=== PATIENT | female | born 1950 | race Asian ===

== ENCOUNTER 2024-10-23 01:53 | Observation (INO) ==
[2024-10-23 02:44] LABS: Hematocrit (blood only) 38.0 % (37.0-47.0); Hemoglobin 12.2 g/dl (12.0-16.0); Mean Corpuscular Hemoglobin 31.0 pg (25.0-34.0); Mean Corpuscular Volume 96.7 fL (80.0-100.0); Platelet Count 295 K/uL (130-400); RDW Standard Deviation 46.7 fL (36.4-46.3); Red Blood Count 3.93 M/uL (4.20-5.40); White Blood Count 6.88 K/ul (4.8-10.8)
--- NOTE | 2024-10-23 02:48 | Emergency Department Note ---
Impression & Plan Left upper extremity numbness, Left chest pressure ED Provider Note CHIEF COMPLAINT: Numbness HISTORY OF PRESENTING ILLNESS: This 74-year-old female patient presents to the emergency department via ambulance for evaluation of numbness to her left arm and hand. The patient states that she ate later than usual tonight around 9 pm. She states that she had spicy Syriac food. She states that she feels numb on the left side of her body mostly in her left arm and hand as well as the left side of her chest near the left arm. She feels cold and like her body is shaking. However, she denies any fever or URI symptoms. She denies any weakness of her arms or legs. She is still able to walk and talk normally. She denies any facial droop. She denies any numbness other than the left arm and hand. She is not on any blood thinners and does not take Aspirin. The symptoms started at 10 pm and the symptoms are starting to improve. She denies chest pain or SOB. She denies abdominal pain, nausea, or vomiting. She denies any urinary symptoms or problems with her BMs. Denies any previous similar symptoms. No history of stroke. She denies tobacco use or vaping. Occasional alcohol use and she states that she did have some wine with dinner. REVIEW OF SYSTEMS: See HPI for pertinent positives and pertinent negatives. ALLERGIES: NKDA MEDICATIONS: Oxybutynin XL 10 mg, Amlodipine 5 mg, Losartan 100 mg PAST MEDICAL HISTORY: HTN, Prediabetes PHYSICAL EXAM: VITALS: Vitals are noted on the nurse's note and reviewed by myself. GENERAL: No acute distress, non-diaphoretic. SKIN: No rashes or abnormal skin lesions in the areas of concern. Capillary reflex less than 2 seconds. HEAD: No scalp tenderness. No step-offs felt. EARS: Bilateral external auditory canals clear. Bilateral tympanic membranes pearly allen without erythema or effusion. No hemotympanum. No dailey sign. No mastoid tenderness. EYES: Pupils equal round and reactive to light and accommodation. Conjunctivae without injection, sclerae without icterus. Extraocular movements intact without pain. No nystagmus. NOSE: Patent, turbinates without inflammation or discharge. No sinus tenderness. No septal hematoma or bleeding. FACE: No facial bone tenderness. Full range of motion of the jaw without tenderness. No facial droop. MOUTH: Mucous membranes moist. Uvula midline. Airway patent. Tongue does not deviate. NECK: Supple without nuchal rigidity. Cervical spine is nontender. Full range of motion of the neck without tenderness and normal strength. HEART: Regular rate and rhythm without murmurs gallops or rubs. LUNGS: Clear to auscultation bilaterally without wheezes, rales or rhonchi. No retractions or accessory muscle use. No chest wall tenderness. ABDOMEN: Positive bowel sounds x 4. Normal tympanic percussion. Soft, nontender to palpation. No masses or hepatosplenomegaly. No guarding or rebound tenderness. No focal RLQ or LLQ tenderness. MUSCULOSKELETAL: No tenderness of the thoracic or lumbar spine or paraspinal muscles. Full range of motion of the bilateral upper and lower extremities. Strength 5/5 and equal bilaterally in the upper and lower extremities. Peripheral pulses 2+ and equal in the bilateral upper and lower extremities. NEURO: Patient was alert and oriented to person place and time. Normal mental status exam. Normal sensation to light and sharp touch of the bilateral upper and lower extremities. Negative Romberg and pronator drift. Normal qvrkwx-oz-ecof touch. Normal jjib-tl-myod touch. Cerebellar function intact. No focal neurological deficits. DIFFERENTIAL DIAGNOSIS: Differential diagnosis includes paresthesias, CVA, TIA, dehydration, hypovolemia, anemia, tumor, infection, hypoglycemia, electrolyte abnormalities, cardiac sources, intracerebral event, toxicologic, neurologic, as well as other pathologies. ED COURSE AND MEDICAL DECISION MAKING: MEDICATIONS GIVEN: 500 mL normal saline solution bolus. Pepcid 20 mg IV. Aspirin 324 mg p.o. MONITOR: Continuous court monitor: Order was placed for continuous court monitor. Patient was placed on the court monitor and continuous pulse ox. Patient was noted to be in sinus tachycardia at an initial rate of 104 bpm per my interpretation. EKG: EKG was interpreted by myself as normal sinus rhythm at 98 bpm with somewhat poor quality of the EKG, but no obvious acute abnormalities. INTERPRETATION OF LABS: I interpreted the labs with full lab results as below in the lab section of this note. Laboratory results pertinent to the emergent complaint are discussed in the MDM section below. The patient was advised to follow up with their PCP and/or specialist(s) for further outpatient monitoring and management of any abnormal results. INTERPRETATION OF IMAGING: Imaging studies were interpreted by myself and read by radiology as per the imaging section of this note. The patient was advised to follow up with their PCP and/or specialist(s) for further outpatient management of any non-emergent abnormal findings. CT scan of the head without contrast showed no acute intracranial abnormality. There is chronic microvascular ischemic changes. Cerebral atrophy. No obvious large territorial ischemic/hemorrhagic stroke. CTA of the head and neck with IV contrast shows no critical stenosis, but there are mild atherosclerotic changes in the intracranial portions of the bilateral internal carotid arteries as well as small atherosclerotic calcific plaques in the left common carotid artery, bilateral carotid bulbs, and ostial proximal segments of the internal and external carotid arteries without significant luminal narrowing. CTA of the chest with IV contrast showed no evidence for PE. There is mild dilation of the pulmonary trunk, bilateral main pulmonary artery up to subsegmental level with mild tortuosity. Suggest possibility of pulmonary arterial hypertension. Diffuse ground glass haze and subpleural atelectasis involving the dependent portion of both lower lobes which is likely positional. CONSULTATIONS: On-call hospitalist MDM SUMMARY: The patient was seen during a time of extreme volume and extreme acuity. Nursing triage protocols were initiated with IV lock, labs, and/or imaging studies conducted by protocol in the triage area. The patient was examined by myself once they were taken back to an exam room. The patient ate dinner later than usual this evening at 9 PM. She states that she cooked spicy Syriac food and had some wine with dinner. Around 10 PM she developed numbness and tingling into the left arm and hand as well as a numbness and tingling feeling to the left side of her chest near the left arm. No other focal neurologic symptoms and no focal neurologic deficits on exam. The patient has normal sensation to light and sharp touch of the left upper extremity at the time of my exam. She states that the symptoms have almost resolved at the time of initial exam. NIH stroke score of 0 with normal dysphagia screen. The patient was given 500 mL normal saline solution bolus. She was given Pepcid 20 mg IV. White blood cell count normal at 6.88. Hemoglobin normal at 12.2. Platelet count normal at 295. Coags were normal. Glucose 133, but CMP without concerning abnormalities. Magnesium normal. High-sensitivity troponin normal. TSH elevated at 6.653 with normal free T4 of 1.13. Medical alcohol level 57.7. CT scan of the head without contrast showed no acute intracranial abnormality. There is chronic microvascular ischemic changes. Cerebral atrophy. No obvious large territorial ischemic/hemorrhagic stroke. CTA of the head and neck with IV contrast shows no critical stenosis, but there are mild atherosclerotic changes in the intracranial portions of the bilateral internal carotid arteries as well as small atherosclerotic calcific plaques in the left common carotid artery, bilateral carotid bulbs, and ostial proximal segments of the internal and external carotid arteries without significant luminal narrowing. CTA of the chest with IV contrast showed no evidence for PE. There is mild dilation of the pulmonary trunk, bilateral main pulmonary artery up to subsegmental level with mild tortuosity. Suggest possibility of pulmonary arterial hypertension. Diffuse ground glass haze and subpleural atelectasis involving the dependent portion of both lower lobes which is likely positional. By the time the patient's workup was complete, the patient stated that her symptoms resolved. I had a meaningful discussion about this patient with Dr. Santiago who agrees with my assessment and the treatment plan. There is concern for possible TIA as a cause of her symptoms. We feel the patient requires admission for further inpatient evaluation and treatment of her symptoms. I spoke with the on-call hospitalist who agreed to admit the patient for further management. Please refer to their dictation for further details. She was given aspirin 324 mg p.o. chewed. The patient's care was transferred in stable condition. DIAGNOSIS: Numbness and tingling in the left upper extremity - ? possible TIA Chest pain Past Med/Surg History Problem List (Updated 10/23/24 @ 20:58 by Mile Cummings PA-C) Left upper extremity numbness (Acute) Left chest pressure (Acute) Stroke-like symptoms Medical History (Updated 10/23/24 @ 20:58 by Mile Cummings PA-C) Hyperlipidemia Hypertension Social History Smoking Status: Never smoker Hx Alcohol Use: Yes Alcohol type: beer Hx Substance Use: No Preferred Language: [place] She[place] Operator Required: No Beliefs That Will Affect Care: None Current Living Situation: Spouse Other Information That Helps Us Care for You: No Feels Safe at Home: Yes Safety Concerns: Feels Safe At This Time Allergies Allergies Allergy/AdvReac Type Severity Reaction Status Date / Time No Known Allergies Allergy Verified 10/23/24 02:46 Home Meds Home Medications Medication Instructions Recorded Confirmed amlodipine 5 mg tablet 5 mg PO DAILY 10/23/24 10/23/24 losartan 100 mg tablet 100 mg PO DAILY 10/23/24 10/23/24 rosuvastatin 10 mg tablet 10 mg PO HS 10/23/24 10/23/24 Previous Rx's Medication Instructions Recorded aspirin 81 mg tablet,delayed 81 mg PO QAM #30 tabs 10/23/24 release Results & Data (ED) Vital Signs Vital Signs - 24 hr 10/23/24 02:04 10/23/24 02:26 10/23/24 02:31 Temperature 36.6 C Temperature Source Temporal Artery Scan Pulse Rate 93 H 83 Pulse Rate [Apical] Pulse Rhythm Regular Pulse Rhythm [Apical] Pulse Strength Normal Pulse Strength [Apical] Respiratory Rate 18 Respiratory Effort / Characteristics Non-Labored Spontaneous Respiratory Depth Normal Respiratory Pattern Regular Blood Pressure 154/86 H Blood Pressure [Right Arm] Blood Pressure Mean 108 Blood Pressure Mean [Right Arm] Blood Pressure Position Sitting Blood Pressure Position [Right Arm] Pulse Oximetry 99 98 Oxygen Delivery Method Room Air Room Air Sepsis Recent Fever Within 48 Hours No Sepsis New/Unexplained Change in Mental Status N/A Sepsis Action Taken by Nursing No Action Required 10/23/24 04:00 10/23/24 06:00 10/23/24 06:15 Temperature Temperature Source Pulse Rate 114 H Pulse Rate [Apical] 91 H 87 Pulse Rhythm Pulse Rhythm [Apical] Regular Regular Pulse Strength Pulse Strength [Apical] Normal Normal Respiratory Rate 18 20 Respiratory Effort / Characteristics Non-Labored Spontaneous Non-Labored Spontaneous Respiratory Depth Normal Normal Respiratory Pattern Regular Regular Blood Pressure Blood Pressure [Right Arm] 120/94 179/96 H Blood Pressure Mean Blood Pressure Mean [Right Arm] 102 123 Blood Pressure Position Blood Pressure Position [Right Arm] Lying Sitting Pulse Oximetry 97 100 Oxygen Delivery Method Room Air Room Air Sepsis Recent Fever Within 48 Hours Sepsis New/Unexplained Change in Mental Status Sepsis Action Taken by Nursing Laboratory Data 10/23/24 02:15 10/23/24 02:15 Lab Results 10/23/24 10/23/24 Range/Units 02:15 04:18 WBC 6.88 (4.8-10.8) K/ul RBC 3.93 L (4.20-5.40) M/uL Hgb 12.2 (12.0-16.0) g/dl Hct 38.0 (37.0-47.0) % MCV 96.7 (80.0-100.0) fL MCH 31.0 (25.0-34.0) pg MCHC 32.1 (32.0-36.0) g/dL RDW Std Deviation 46.7 H (36.4-46.3) fL RDW Coeff of Juan Daniel 13.1 (11.5-14.5) % Plt Count 295 (130-400) K/uL MPV 9.1 L (9.4-12.4) fL PT 9.5 (9.0-12.0) Seconds INR 0.9 (0.9-1.1) APTT 27 (21-31) Seconds PTT Ratio 1.0 Sodium 137 (136-145) mmol/L Potassium 3.5 (3.5-5.1) mmol/L Chloride 101 (98-107) mmol/L Carbon Dioxide 27 (21-32) mmol/L Anion Gap 9 (3-11) BUN 19 (6-23) mg/dl Creatinine 0.94 (0.6-1.2) mg/dl Est Cr Clr Drug Dosing 34.9 ml/min eGFR 64.47 BUN/Creatinine Ratio 20.2 H (10-20) Glucose 133 H (70-99(Fasting)) mg/dl Calcium 9.1 (8.6-10.3) mg/dl Magnesium 2.2 (1.7-2.4) mg/dl Total Bilirubin 0.4 (0.2-1.0) mg/dl AST 23 (13-39) U/L ALT 14 (7-52) U/L Alkaline Phosphatase 60 (34-104) U/L Troponin I High Sens 5.5 (0-14) pg/ml Total Protein 8.6 H (6.0-8.3) gm/dl Albumin 4.6 (3.4-5.0) gm/dl Globulin 4.0 (2.5-4.0) gm/dl Albumin/Globulin Ratio 1.1 (0.9-2) TSH 6.653 H (0.300-4.500) uIu/ml Free T4 1.13 (0.61-1.60) ng/dl Ethyl Alcohol mg/dL 57.7 H (<10.0) mg/dl Administered Medications Discontinued Medications Amlodipine Besylate (Amlodipine Besylate 5 Mg Tab) 5 mg PO DAILY CYNTHIA Stop: 11/22/24 15:59 Last Admin: 10/23/24 16:32 Dose: 5 mg Documented By: TRES Aspirin (Aspirin Chew 324 Mg) 324 mg PO NOW STA Stop: 10/23/24 05:56 Last Admin: 10/23/24 06:04 Dose: 324 mg Documented By: JYOTI Sodium Chloride (Nss) 500 mls @ 999 mls/hr IV .Q31M ONE Stop: 10/23/24 03:30 Last Infusion: 10/23/24 03:50 Dose: Infused Documented By: Admin: 10/23/24 03:10 Dose: 999 mls/hr Documented By: DAYAN Famotidine (Pepcid 20mg Iv Push) 20 mg in 5 mls @ 2.5 mls/min IV NOW STA Stop: 10/23/24 03:01 Last Admin: 10/23/24 03:10 Dose: 2.5 mls/min Documented By: DAYAN Ioversol (Optiray 320 125ml) 125 ml IV ONCE ONE Stop: 10/23/24 03:38 Last Admin: 10/23/24 03:37 Dose: 118 ml Documented By: DUNIA Losartan Potassium (Losartan Potassium 50 Mg Tab) 100 mg PO DAILY CYNTHIA Stop: 11/22/24 15:59 Last Admin: 10/23/24 16:32 Dose: 100 mg Documented By: TRES Discharge Plan Visit Data Chief Complaint: Neuro Symptoms/Deficit Stated Complaint: FLU ED Provider: Coni Santiago ED Midlevel Provider: Mile Cummings Discharge Problem: Left upper extremity numbness, Left chest pressure Patient Disposition: Admitted As Inpatient Condition: Fair Discharge Instructions Interventions: ED Discharge Assessment Last Done: 10/23/24 09:55
[2024-10-23 02:52] LABS: Alanine Aminotransferase 14.0 U/L (7-52); Albumin Globulin Ratio 1.1 (0.9-2); Alkaline Phosphatase 60.0 U/L (34-104); Anion Gap 9.0 (3-11); Bilirubin,Total 0.4 mg/dl (0.2-1.0); Blood Urea Nitrogen 19.0 mg/dl (6-23); Calcium 9.1 mg/dl (8.6-10.3); Carbon Dioxide 27.0 mmol/L (21-32); Chloride 101.0 mmol/L (98-107); Creatinine Clr Calc Pharmacy 34.9 ml/min; Globulin 4.0 gm/dl (2.5-4.0); Glucose 133.0 mg/dl (70-99(Fasting)); Magnesium 2.2 mg/dl (1.7-2.4); Potassium 3.5 mmol/L (3.5-5.1); Sodium 137.0 mmol/L (136-145); Total Protein 8.6 gm/dl (6.0-8.3)
[2024-10-23] MEDS: FAMOTIDINE 20MG IV PUSH 20 MG/5 ML SYR IV STA (03:10)
[2024-10-23] MEDS: SODIUM CHLORIDE 0.9% 500 ML IV ONE (03:10)
[2024-10-23 03:11] LABS: INR 0.9 (0.9-1.1); Partial Thromboplastin Time 27 Seconds (21-31); Prothrombin Time 9.5 Seconds (9.0-12.0)
[2024-10-23] MEDS: OPTIRAY 320 125ml IV ONE (03:37)
[2024-10-23 03:38] LABS: Thyroid Stimulating Hormone 6.653 uIu/ml (0.300-4.500)
--- NOTE | 2024-10-23 04:15 | CT Scan Report ---
EXAM: CT head/brain wo con CLINICAL HISTORY: Numbness left arm TECHNIQUE: Multiple axial images are obtained from the skull base to the vertex without contrast. CT scan was performed according to ALARA (as low as reasonably achievable). COMPARISON: None. FINDINGS: There is cerebral atrophy. No evidence of space occupying lesion, hemorrhage, edema, mass effect, midline shift, extra axial collection, or hydrocephalus is noted. Basal cisterns are symmetric and normal in size and configuration. There are scattered confluent periventricular hypodensities as can be seen with chronic microvascular ischemic changes. The allen-white matter differentiation is preserved. Visualized paranasal sinuses and mastoid air cells are well aerated. Orbital contents are within normal limits. Bony structures are intact. IMPRESSION: 1. No evidence of acute intracranial abnormality is demonstrated. 2. Chronic microvascular ischemic changes. 3. Cerebral atrophy. 4. CT scan is negative for large territorial ischemic / hemorrhagic stroke. 5. Non contrast CT can be negative in the setting of hyperacute infarct/small ischemic infarct and further evaluation with diffusion weighted MRI is recommended as clinically appropriate. Electronically signed by Pierre Hilton 10-23-2024 04:14 AM
--- NOTE | 2024-10-23 05:02 | CT Scan Report ---
EXAM: CT angio chest PE protocol CLINICAL HISTORY: chest pain, left arm numb, eval PE TECHNIQUE: Contiguous axial images were obtained from the neck base through the upper abdomen following intravenous administration of iodinated contrast material. Angiographic images were processed, 3D MIP images were acquired for interpretation. If IV contrast material had not been administered, the likelihood of detecting abnormalities relevant to the patient's condition would have been substantially decreased. Coronal and sagittal 3-D MIPs were likewise performed and indicated to increase the sensitivity of detectin diffuse clinically relevant pathology. CT scan was performed according to ALARA (as low as reasonably achievable). COMPARISON: None. FINDINGS: Mild dilatation of pulmonary trunk ,bilateral main pulmonary artery up to subsegmental level with mild tortuosity - suggest possibility of pulmonary arterial hypertension. Diffuse ground-glass hase with subpleural atelectasis are noted involving dependent portion of both lower lobes - suggest possibility of due to insufficient inspiration. Adequate contrast bolus without evidence of pulmonary embolism. The central airways are patent. The heart, aorta, are of normal size and configuration. There are coronary artery and aortic atherosclerotic calcifications. No pericardial effusion is identified. The thyroid is unremarkable. No mediastinal, hilar, or axillary lymphadenopathy is noted. No suspicious lytic or sclerotic osseous lesions are identified. IMPRESSION: No evidence of pulmonary embolism. Mild dilatation of pulmonary trunk ,bilateral main pulmonary artery up to subsegmental level with mild tortuosity - suggest possibility of pulmonary arterial hypertension. Diffuse ground-glass hase with subpleural atelectasis are noted involving dependent portion of both lower lobes - likely positional. Electronically signed by Pierre Hilton 10-23-2024 05:02 AM
--- NOTE | 2024-10-23 05:09 | CT Scan Report ---
EXAM: CT angio head w con CLINICAL HISTORY: Numbness left arm TECHNIQUE: An axial CT angiography of the head was done with IV contrast (100 ml Isovue 370) and sagittal and coronal reformats with MIP reconstructions. One of the following dose reduction techniques was utilized for this exam: Automated exposure control, adjustment of the mA and/or kV according to patient size, and use of iterative reconstruction. One of these 3D techniques was utilized: Maximum Intensity Pixel (MIP), 3D Reconstructed Images, Volume Rendered Images, Surface Shaded Rendering. (CTDI: 38.03 mGy, DLP: 1046.80 mGy*cm) COMPARISON: CT head, same day reviewed FINDINGS: Intracranial Arteries: The intracranial portions of the bilateral internal carotid arteries show calcified plaques with up to 10% luminal narrowing. Bilateral anterior and middle cerebral arteries appear normal in caliber and contrast opacification. Prominent posterior communicating arteries on both sides with origin of posterior cerebral arteries. Hypoplastic P2 segment of the left posterior cerebral artery, normal variant. The basilar artery and the rest of the bilateral posterior cerebral arteries appear normal in caliber and contrast opacification. The visualized vertebral arteries appear normal in caliber and contrast opacification. IMPRESSION: 1. No critical stenosis in CT angiography of the head. 2. Mild atherosclerotic changes in the intracranial portions of the bilateral internal carotid arteries. Electronically signed by Avila Rm 10-23-2024 05:08 AM
--- NOTE | 2024-10-23 05:23 | CT Scan Report ---
EXAM: CT angio neck with con CLINICAL HISTORY: Numbness left arm TECHNIQUE: An axial CT angiography of the neck was done with IV contrast (118 ML OPTIRAY 320) and sagittal and coronal reformats with MIP reconstructions. One of these 3D techniques was utilized: Maximum Intensity Pixel (MIP), 3D Reconstructed Images, Volume Rendered Images, Surface Shaded Rendering. One of the following dose reduction techniques were utilized for this exam: Automated exposure control, adjustment of the mA and/or kV according to patient size, use of iterative reconstruction. (CTDI: 38.03 mGy, DLP: 1046.80 mGy*cm) COMPARISON: None. FINDINGS: The aortic arch shows atherosclerotic changes with calcified plaques. Normal branching pattern noted. Carotid Arteries: Tiny calcific plaques in left common carotid artery with mild intimal thickening without significant luminal narrowing, otherwise bilateral common carotid arteries appear normal in caliber and contrast opacification. Tiny calcified plaques are seen at bilateral carotid bulbs and osteoproximal segments of internal and external carotid arteries, without significant luminal narrowing. The cervical portions of bilateral internal carotid arteries appear normal in caliber and contrast opacification. Bilateral external carotid arteries appear normal in caliber and contrast opacification. Vertebral Arteries: Calcific plaque at the origin of, rest of vertebral arteries bilaterally are well-opacified. Subclavian Arteries: Calcified plaques in proximal portions of both subclavian arteries with up to 10%-20% luminal narrowing. Thyroid Gland: Normal size and morphology of the thyroid gland. Visualised chest: Mild bilateral apical lung fibrosis Cervical Spine: Degenerative changes in the cervical spine. IMPRESSION: No critical stenosis in CT angiography of the neck Small atherosclerotic calcific plaques in the left common carotid artery, bilateral carotid bulbs, and osteoproximal segments of internal and external carotid arteries, without significant luminal narrowing. Electronically signed by Avila Rm 10-23-2024 05:22 AM
--- NOTE | 2024-10-23 05:29 | Emergency Department Note ---
ED Visit Note I was consulted by the Advanced Practice Provider. I personally made/approved the management plan and take responsibility for the patient management. I performed a substantive portion of the visit. This includes the aspects of: Personally seeing the patient -MDM I reviewed the results of her CT scans And laboratory studies. .
[2024-10-23] MEDS: ASPIRIN CHEW 324 MG PO STA (06:04)
--- NOTE | 2024-10-23 06:30 | History & Physical Report ---
Date of Service October 23, 2024 Assessment & Plan (1) Stroke-like symptoms: (2) Left chest pressure: (3) Left upper extremity numbness: (4) Hypertension: Plan The patient is a 74-year-old male with past medical history including hypertension and hyperlipidemia. The patient presents to the emergency department with complaint of development of numbness on the left side of her face, left chest and left arm that began around 10 PM, after eating a late meal around 9:00 PM. She denies any involvement of her left leg. She is not on any blood thinners, and does not take aspirin. She does take her antihypertensives and cholesterol medications as directed. Workup in the emergency department included a CT scan of head which showed chronic small vessel disease with no acute problems. Normal CTA of head. CTA of neck which showed nonobstructive small plaques in the carotids. CTA chest PE protocol was negative for PE ED was asked to give the patient aspirin 324 mg. Strokelike symptoms/left chest pressure and numbness/left upper extremity numbness- The patient will be admitted to telemetry for serial cardiac enzymes, serial EKG's, cardiac rhythm monitoring and a 2-D echocardiogram with Dopplers. Initial troponin 5.5, with serial follow-ups pending Permissive hypertension, holding losartan and amlodipine Patient received from the ED normal saline 500 mL bolus, and famotidine 20 mg IV Stroke without thrombolytic order set CT head without contrast shows chronic small vessel disease CTA head is negative CTA neck shows small atherosclerotic calcific plaques in the left common carotid artery, bilateral carotid bulbs, and ostial proximal segments of internal and ex ternal carotid arteries, without significant luminal narrowing. Given aspirin 324 mg in ED, and will continue milligrams every morning Ordered MRI brain without contrast Consult PT/OT Check hemoglobin A1c and fasting panel Hyperlipidemia Continue rosuvastatin Check a fasting lipid panel as noted Hypertension- In the acute setting hold amlodipine and losartan, permissive hypertension Mild hyperglycemia- Glucose 133 on admission Check hemoglobin A1c Social alcohol intake- Alcohol is 57.7, no further testing needed History of Present Illness Chief Complaint: The patient presents to the emergency department with complaint of development of numbness on the left side of her face, left chest and left arm that began around 10 PM, after eating a late meal around 9:00 PM. She denies any involvement of her left leg. She is not on any blood thinners, and does not take aspirin. She does take her antihypertensives and cholesterol medications as directed. Primary Care Provider: Tom Trivedi MD The patient is a 74-year-old male with past medical history including hypertension and hyperlipidemia. The patient presents to the emergency department with complaint of development of numbness on the left side of her face, left chest and left arm that began around 10 PM, after eating a late meal around 9:00 PM. She denies any involvement of her left leg. She is not on any blood thinners, and does not take aspirin. She does take her antihypertensives and cholesterol medications as directed. Workup in the emergency department included a CT scan of head which showed chronic small vessel disease with no acute problems. Normal CTA of head. CTA of neck which showed nonobstructive small plaques in the carotids. CTA chest PE protocol was negative for PE ED was asked to give the patient aspirin 324 mg. Allergies Allergy/AdvReac Type Severity Reaction Status Date / Time No Known Allergies Allergy Verified 10/23/24 02:46 Home Medications Medication Instructions Recorded Confirmed Type amlodipine 5 mg tablet 5 mg PO DAILY 10/23/24 10/23/24 History losartan 100 mg tablet 100 mg PO DAILY 10/23/24 10/23/24 History rosuvastatin 10 mg tablet 10 mg PO HS 10/23/24 10/23/24 History Past Med/Surg History Problem List (Updated 10/23/24 @ 06:24 by Trever Rahman MD) Left upper extremity numbness Left chest pressure Stroke-like symptoms Medical History (Updated 10/23/24 @ 06:24 by Trever Rahman MD) Hyperlipidemia Hypertension Social History Smoking Status: Never smoker Preferred Language: Portuguese Feels Safe at Home: Yes Review of Systems Review of Systems: The patient denies chest pain, palpitations, shortness of breath, dyspnea on exertion, cough, lower extremity swelling, sore throat, fevers, chills, sweats, weight change, fatigue, nausea, vomiting, diarrhea , constipation, abdominal pain, pelvic pain, blood in urine or stool, dysuria, urinary frequency or urgency, lightheadedness, dizziness, headache, memory loss, loss of consciousness, rash, abnormal bruising or bleeding, imbalance, focal or generalized weakness, numbness or tingling in right arm or bilateral legs, generalized arthralgias or myalgias, back or neck pain, or night sweats. The review of systems is otherwise negative other than for that already noted above, and at least 10 systems have been reviewed. Physical Exam Physical Exam: The patient is awake, alert and oriented 3, well developed and well nourished, normocephalic and atraumatic, lying in bed and in no acute distress. HEENT--PERRL, EOMI, mucous membranes and oropharynx normal Neck--supple. No JVD. No bruits. Thyroid normal, trachea midline, no adenopathy. Heart--normal S1 and S2. No murmurs, rubs or gallops. Lungs--clear bilaterally, no respiratory distress, no accessory muscle use. Abdomen--normal bowel sounds and soft. Nontender. Nondistended, no hernias or masses, no organomegaly. Extremities--no cyanosis or clubbing. No edema. There are good distal pulses b/l. Dermatologic--normal skin turgor, normal color, no abnormal lymph nodes, no rash. Neurologic--cranial nerves II through XII grossly intact. Rheumatologic--normal range of motion. Psychiatric--normal affect. Results & Data Results & Data Vital Signs (Past 12 Hours) Vital Signs Temp Pulse Pulse Resp BP BP Pulse Ox 10/23/24 06:15 114 H 10/23/24 04:00 91 H 18 120/94 97 10/23/24 02:31 83 10/23/24 02:26 98 10/23/24 02:04 36.6 C 93 H 18 154/86 H 99 O2 Del Method 10/23/24 06:15 10/23/24 04:00 Room Air 10/23/24 02:31 10/23/24 02:26 Room Air 10/23/24 02:04 Room Air Laboratory Results Laboratory Results WBC 6.88 K/ul (4.8-10.8) 10/23/24 02:15 RBC 3.93 M/uL (4.20-5.40) L 10/23/24 02:15 Hgb 12.2 g/dl (12.0-16.0) 10/23/24 02:15 Hct 38.0 % (37.0-47.0) 10/23/24 02:15 MCV 96.7 fL (80.0-100.0) 10/23/24 02:15 MCH 31.0 pg (25.0-34.0) 10/23/24 02:15 MCHC 32.1 g/dL (32.0-36.0) 10/23/24 02:15 RDW Std Deviation 46.7 fL (36.4-46.3) H 10/23/24 02:15 RDW Coeff of Juan Daniel 13.1 % (11.5-14.5) 10/23/24 02:15 Plt Count 295 K/uL (130-400) 10/23/24 02:15 MPV 9.1 fL (9.4-12.4) L 10/23/24 02:15 PT 9.5 Seconds (9.0-12.0) 10/23/24 02:15 INR 0.9 (0.9-1.1) 10/23/24 02:15 APTT 27 Seconds (21-31) 10/23/24 02:15 PTT Ratio 1.0 10/23/24 02:15 Sodium 137 mmol/L (136-145) 10/23/24 02:15 Potassium 3.5 mmol/L (3.5-5.1) 10/23/24 02:15 Chloride 101 mmol/L (98-107) 10/23/24 02:15 Carbon Dioxide 27 mmol/L (21-32) 10/23/24 02:15 Anion Gap 9 (3-11) 10/23/24 02:15 BUN 19 mg/dl (6-23) 10/23/24 02:15 Creatinine 0.94 mg/dl (0.6-1.2) 10/23/24 02:15 Est Cr Clr Drug Dosing 34.9 ml/min 10/23/24 02:15 eGFR 64.47 10/23/24 02:15 BUN/Creatinine Ratio 20.2 (10-20) H 10/23/24 02:15 Glucose 133 mg/dl (70-99(Fasting)) H 10/23/24 02:15 Calcium 9.1 mg/dl (8.6-10.3) 10/23/24 02:15 Magnesium 2.2 mg/dl (1.7-2.4) 10/23/24 02:15 Total Bilirubin 0.4 mg/dl (0.2-1.0) 10/23/24 02:15 AST 23 U/L (13-39) 10/23/24 02:15 ALT 14 U/L (7-52) 10/23/24 02:15 Alkaline Phosphatase 60 U/L (34-104) 10/23/24 02:15 Troponin I High Sens 5.5 pg/ml (0-14) 10/23/24 02:15 Total Protein 8.6 gm/dl (6.0-8.3) H 10/23/24 02:15 Albumin 4.6 gm/dl (3.4-5.0) 10/23/24 02:15 Globulin 4.0 gm/dl (2.5-4.0) 10/23/24 02:15 Albumin/Globulin Ratio 1.1 (0.9-2) 10/23/24 02:15 TSH 6.653 uIu/ml (0.300-4.500) H 10/23/24 02:15 Free T4 1.13 ng/dl (0.61-1.60) 10/23/24 02:15 Ethyl Alcohol mg/dL 57.7 mg/dl (<10.0) H 10/23/24 04:18 Impressions Chest CTA 10/23/24 03:00 EXAM: CT angio chest PE protocol CLINICAL HISTORY: chest pain, left arm numb, eval PE TECHNIQUE: Contiguous axial images were obtained from the neck base through the upper abdomen following intravenous administration of iodinated contrast material. Angiographic images were processed, 3D MIP images were acquired for interpretation. If IV contrast material had not been administered, the likelihood of detecting abnormalities relevant to the patient's condition would have been substantially decreased. Coronal and sagittal 3-D MIPs were likewise performed and indicated to increase the sensitivity of detectin diffuse clinically relevant pathology. CT scan was performed according to ALARA (as low as reasonably achievable). COMPARISON: None. FINDINGS: Mild dilatation of pulmonary trunk ,bilateral main pulmonary artery up to subsegmental level with mild tortuosity - suggest possibility of pulmonary arterial hypertension. Diffuse ground-glass hase with subpleural atelectasis are noted involving dependent portion of both lower lobes - suggest possibility of due to insufficient inspiration. Adequate contrast bolus without evidence of pulmonary embolism. The central airways are patent. The heart, aorta, are of normal size and configuration. There are coronary artery and aortic atherosclerotic calcifications. No pericardial effusion is identified. The thyroid is unremarkable. No mediastinal, hilar, or axillary lymphadenopathy is noted. No suspicious lytic or sclerotic osseous lesions are identified. IMPRESSION: No evidence of pulmonary embolism. Mild dilatation of pulmonary trunk ,bilateral main pulmonary artery up to subsegmental level with mild tortuosity - suggest possibility of pulmonary arterial hypertension. Diffuse ground-glass hase with subpleural atelectasis are noted involving dependent portion of both lower lobes - likely positional. Electronically signed by Pierre Hilton 10-23-2024 05:[address] 10/23/24 03:00 EXAM: CT head/brain wo con CLINICAL HISTORY: Numbness left arm TECHNIQUE: Multiple axial images are obtained from the skull base to the vertex without contrast. CT scan was performed according to ALARA (as low as reasonably achievable). COMPARISON: None. FINDINGS: There is cerebral atrophy. No evidence of space occupying lesion, hemorrhage, edema, mass effect, midline shift, extra axial collection, or hydrocephalus is noted. Basal cisterns are symmetric and normal in size and configuration. There are scattered confluent periventricular hypodensities as can be seen with chronic microvascular ischemic changes. The allen-white matter differentiation is preserved. Visualized paranasal sinuses and mastoid air cells are well aerated. Orbital contents are within normal limits. Bony structures are intact. IMPRESSION: 1. No evidence of acute intracranial abnormality is demonstrated. 2. Chronic microvascular ischemic changes. 3. Cerebral atrophy. 4. CT scan is negative for large territorial ischemic / hemorrhagic stroke. 5. Non contrast CT can be negative in the setting of hyperacute infarct/small ischemic infarct and further evaluation with diffusion weighted MRI is recommended as clinically appropriate. Electronically signed by Pierre Hilton 10-23-2024 04:14 AM Head CTA 10/23/24 03:00 EXAM: CT angio head w con CLINICAL HISTORY: Numbness left arm TECHNIQUE: An axial CT angiography of the head was done with IV contrast (100 ml Isovue 370) and sagittal and coronal reformats with MIP reconstructions. One of the following dose reduction techniques was utilized for this exam: Automated exposure control, adjustment of the mA and/or kV according to patient size, and use of iterative reconstruction. One of these 3D techniques was utilized: Maximum Intensity Pixel (MIP), 3D Reconstructed Images, Volume Rendered Images, Surface Shaded Rendering. (CTDI: 38.03 mGy, DLP: 1046.80 mGy*cm) COMPARISON: CT head, same day reviewed FINDINGS: Intracranial Arteries: The intracranial portions of the bilateral internal carotid arteries show calcified plaques with up to 10% luminal narrowing. Bilateral anterior and middle cerebral arteries appear normal in caliber and contrast opacification. Prominent posterior communicating arteries on both sides with origin of posterior cerebral arteries. Hypoplastic P2 segment of the left posterior cerebral artery, normal variant. The basilar artery and the rest of the bilateral posterior cerebral arteries appear normal in caliber and contrast opacification. The visualized vertebral arteries appear normal in caliber and contrast opacification. IMPRESSION: 1. No critical stenosis in CT angiography of the head. 2. Mild atherosclerotic changes in the intracranial portions of the bilateral internal carotid arteries. Electronically signed by Avila Rm 10-23-2024 05:08 AM Neck CTA 10/23/24 03:00 EXAM: CT angio neck with con CLINICAL HISTORY: Numbness left arm TECHNIQUE: An axial CT angiography of the neck was done with IV contrast (118 ML OPTIRAY 320) and sagittal and coronal reformats with MIP reconstructions. One of these 3D techniques was utilized: Maximum Intensity Pixel (MIP), 3D Reconstructed Images, Volume Rendered Images, Surface Shaded Rendering. One of the following dose reduction techniques were utilized for this exam: Automated exposure control, adjustment of the mA and/or kV according to patient size, use of iterative reconstruction. (CTDI: 38.03 mGy, DLP: 1046.80 mGy*cm) COMPARISON: None. FINDINGS: The aortic arch shows atherosclerotic changes with calcified plaques. Normal branching pattern noted. Carotid Arteries: Tiny calcific plaques in left common carotid artery with mild intimal thickening without significant luminal narrowing, otherwise bilateral common carotid arteries appear normal in caliber and contrast opacification. Tiny calcified plaques are seen at bilateral carotid bulbs and osteoproximal segments of internal and external carotid arteries, without significant luminal narrowing. The cervical portions of bilateral internal carotid arteries appear normal in caliber and contrast opacification. Bilateral external carotid arteries appear normal in caliber and contrast opacification. Vertebral Arteries: Calcific plaque at the origin of, rest of vertebral arteries bilaterally are well-opacified. Subclavian Arteries: Calcified plaques in proximal portions of both subclavian arteries with up to 10%-20% luminal narrowing. Thyroid Gland: Normal size and morphology of the thyroid gland. Visualised chest: Mild bilateral apical lung fibrosis Cervical Spine: Degenerative changes in the cervical spine. IMPRESSION: No critical stenosis in CT angiography of the neck Small atherosclerotic calcific plaques in the left common carotid artery, bilateral carotid bulbs, and osteoproximal segments of internal and external carotid arteries, without significant luminal narrowing. Electronically signed by Avila Rm 10-23-2024 05:22 AM Code Status & VTE Plan Code Status Full code VTE Prophylaxis Plan VTE Prophylaxis will be ordered: Yes PG Care Time/CCT Total # of Minutes Spent Total Time Spent with Patient: Total time spent is greater than 50% in coordination of care (as documented) at patient's floor/unit and/or counseling patient: Coding Level of Care Code 23626 INT INP/OBS CARE 3/75MIN Diagnoses Stroke-like symptoms R29.90 Left chest pressure R07.89 Left upper extremity numbness R20.0 Hypertension I10
--- NOTE | 2024-10-23 07:22 | Magnetic Resonance Report ---
EXAM: MR brain wo con CLINICAL HISTORY: stroke-like symptoms TECHNIQUE: Multisequential and multiplanar images of the brain were submitted for review without contrast. COMPARISON: None. FINDINGS: Generalized parenchymal atrophy is appreciated. Patchy confluent increased T2/FLAIR signal abnormality are identified within the bilateral periventricular and subcortical white matter, and are most commonly associated with chronic small vessel ischemic disease /hypertensive encephalopathy. No focal parenchymal lesions are seen. No intracranial hemorrhage, mass effect, midline shift, extra-axial collection, or hydrocephalus is identified. Ventricles, sulci, and basal cisterns are symmetric and normal in size and configuration. Diffusion-weighted sequences show no evidence of acute ischemic infarction. Midline structures including the pituitary gland, corpus callosum, pineal region, and brainstem are unremarkable. The craniovertebral junction is within normal limits. No calvarial abnormalities are identified. The paranasal sinuses and mastoid air cells are clear. Orbital structures are unremarkable. Appropriate flow voids are present in the visualized intracranial vessels. IMPRESSION: 1. No acute ischemia, space occupying mass, or other acute intracranial pathology is demonstrated. 2. Chronic small vessel ischemic disease /hypertensive encephalopathy changes as described. 3. Diffuse cerebral atrophy. Electronically signed by Pierre Hilton 10-23-2024 07:21 AM
[2024-10-23] MEDS ORDERED: ACETAMINOPHEN 325 MG TAB PO PRN (09:54)
[2024-10-23] MEDS ORDERED: PHARMACIST DISCHARGE MED REC CONSULT PRN (09:54)
[2024-10-23] MEDS ORDERED: ONDANSETRON INJ 2 MG/ML 2 ML VIAL IV PRN (09:54)
[2024-10-23 11:27] LABS: Hemoglobin A1C 5.9 % (4.5-5.6)
[2024-10-23 11:37] LABS: Cholesterol 145.0 mg/dl (0-200); HDL Cholesterol 91.0 mg/dl; Triglycerides 47.0 mg/dl (0-150)
[2024-10-23 15:01] VITALS: BP 162/94; PULSE 104; RESP 24; TEMP 98.2; O2SAT 98
--- NOTE | 2024-10-23 16:01 | Discharge Summary ---
Discharge Summary Date of Service October 23, 2024 Principal Dx & Hospital Course #1 = Principal Diagnosis (1) Stroke-like symptoms: (2) Left chest pressure: (3) Left upper extremity numbness: (4) Hypertension: Plan The patient is a 74-year-old male with past medical history including hypertension and hyperlipidemia. The patient presents to the emergency department with complaint of development of numbness on the left side of her face, left chest and left arm that began around 10 PM, after eating a late meal around 9:00 PM. She denies any involvement of her left leg. She is not on any blood thinners, and does not take aspirin. She does take her antihypertensives and cholesterol medications as directed. Workup in the emergency department included a CT scan of head which showed chronic small vessel disease with no acute problems. Normal CTA of head. CTA of neck which showed nonobstructive small plaques in the carotids. CTA chest PE protocol was negative for PE ED was asked to give the patient aspirin 324 mg. To do as outpatient: 1. Follow-up on B12 level results 2. Continue aspirin 81 mg daily 3. Routine follow-up to PCP Presented with focal left upper extremity tingling/paresthesias extending from all 5 fingertips to the shoulder. CTAhead/neck: No acute findings. Chronic microvascular ischemic change. Mild nonobstructive bilateral carotid atherosclerosis. No significant luminal narrowing. CThead: No acute findings MRIbrain: No acute findings, chronic small vessel disease and hypertensive encephalopathy changes. Antihypertensives resumed with negative CT All symptoms resolved after receiving full dose aspirin in the ER No evidence of stroke on imaging, cannot definitively rule out TIA. NIHSS on morning reassessment and afternoon reassessment. Given diffuse chronic small vessel disease, hypertension recommended ongoing treatment with aspirin 81 mg daily. She is agreeable to this Continue rosuvastatin 10 mg at bedtime Slightly hypertensive diastolic on reassessment, has not had daily meds. These were restarted with negative MRI. Echo pending at discharge. Follow-up final results at transitional care appointment. No evidence of embolic/paradoxic stroke on MRI. No clinical evidence of CHF/heart failure. Sinus at discharge She reported some transient chest discomfort. This did not recur, and she denied chest pain. EKG was normal sinus rhythm without territorial ST segment changes or T wave inversions, high-sensitivity troponin x 2 was normal. Hyperlipidemia Statin continued Hypertension Medications resumed Social alcohol intake She denies binge drinking, reported she did have some alcohol night prior to being admitted. Denies regular/daily alcohol use. B12 was ordered as part of paresthesia workup, this was pending at time of discharge. Recommended to take a B complex daily, will need follow-up with final B12 level at transitional care appointment. If low recommend adding high-dose supplementation. At bedside she was not tremulous, sweaty, or diaphoretic. She denies history of alcohol withdrawal in the past. Did have intermittent tachycardia with exertion. Admission HPI Per Admitting Provider The patient is a 74-year-old male with past medical history including hypertension and hyperlipidemia. The patient presents to the emergency department with complaint of development of numbness on the left side of her face, left chest and left arm that began around 10 PM, after eating a late meal around 9:00 PM. She denies any involvement of her left leg. She is not on any blood thinners, and does not take aspirin. She does take her antihypertensives and cholesterol medications as directed. Workup in the emergency department included a CT scan of head which showed chronic small vessel disease with no acute problems. Normal CTA of head. CTA of neck which showed nonobstructive small plaques in the carotids. CTA colt PE protocol was negative for PE ED was asked to give the patient aspirin 324 mg. Discharge Exam General: A&Ox3. NAD. Cooperative. HEENT: Atraumatic, normocephalic. Vision and hearing grossly intact, full neuro as noted below Pulm: CTAB A&P. -wheezes, -rales, -rhonchi. Symmetrical chest rise. No increase in work of breathing. No respiratory distress. Cardiac: RRR, intermittently tachycardic with movement,-mrg. Radial pulses intact and symmetrical. Abdominal: Nontender, nondistended, soft. BS present. CRANIAL NERVES: II: Pupils equal and reactive, no relative afferent pupillary defect, no VF cuts III, IV, : EOM intact, no gaze preference or deviation, no nystagmus. V: normal sensation in V1, V2, and V3 segments bilaterally VII: no asymmetry, no nasolabial fold flattening VIII: normal hearing to speech IX, X: normal palatal elevation, no uvular deviation XI: 5/5 head turn and 5/5 shoulder shrug bilaterally XII: midline tongue protrusion MOTOR: RUE: 5/5 Shoulder internal rotation, external rotation, flexion, extension, abduction, adduction 5/5 Elbow flexion/extension, wrist flexion/extension 5/5 fagoter strength, finger flexion/extension, interosseus LUE: 5/5 Shoulder internal rotation, external rotation, flexion, extension, abduction, adduction 5/5 Elbow flexion/extension, wrist flexion/extension 5/5 fagoter strength, finger flexion/extension, interosseus RLE: 5/5 to hip flexion/extension, knee flexion/extension, ankle dorsiflexion/plantarflexion LLE: 5/5 to hip flexion/extension, knee flexion/extension, ankle dorsiflexion/plantarflexion SENSORY: Normal to touch, pinprick, vibration in upper and lower extremities without deficit or asymmetry Discharge Plan Discharge Items Patient Disposition: Home - Self-Care Reason For Visit: STROKE-LIKE SYMPTOMS, CHEST AND LEFT ARM PAIN Discharge Diagnosis: Left arm paresthesias, TIA not definitively excluded Activity: Resume your previous activity Non-emergency contact: Primary Care Provider Call non-emergency contact if: you have any medication questions, your symptoms worsen and your pain is not controlled Follow-up/Referrals: Tom Trivedi MD [Primary Care Provider] - Diet: Regular Addtl Attending Provider Instructions: You were seen for an episode of left arm numbness/tingling without strength loss. Numbness/tingling in the extremities can be caused by multiple things including compression, use/overuse, vitamin deficiency, and stroke/mini strokes. Imaging of your head/brain and the blood vessels in your head and neck did not show any evidence of stroke. There was some chronic age-related changes called small vessel disease; however there was no blockages or evidence of stroke. A mini stroke, or TIA, does not show up on imaging and cannot be ruled out as it leaves no permanent evidence and completely resolves. Since a mini stroke cannot be definitively excluded by any test, and since there is some chronic age-related small vessel disease noted on your imaging you have been started on a baby aspirin daily. Please continue to take aspirin 81 mg daily. Please continue to take rosuvastatin daily. You may continue to take your losartan and amlodipine as prescribed. A B12 level was pending as low B12 levels can lead to numbness/tingling and paresthesias. This was not available at time of discharge however should be followed up by your primary care physician at your next appointment. In the meantime please take an [id number] vitamin B12 supplement daily. If you develop any new or worsening symptoms including fever, chills, sweats, chest pain, chest pressure, difficulty breathing, uncontrolled nausea/vomiting, rash, wheezing, passing out or nearly passing out, bleeding, black/bloody bowel movements, or other new or concerning symptoms please call your primary care physician, or call 911 for re-evaluation in the emergency department if you are very concerned. Pending Studies at Discharge: No Stand-Alone Forms: [facility] [employer], Smoking Cessation, Medications to Prevent Stroke Medications and DC Order Prescriptions: New aspirin 81 mg Tablet,Delayed Release (Dr/Ec) 81 mg PO QAM Qty: 30 0RF Continued amlodipine 5 mg tablet 5 mg PO DAILY losartan 100 mg tablet 100 mg PO DAILY rosuvastatin 10 mg tablet 10 mg PO HS Discharge Orders: Discharge Order (Routine); Ordered 10/23/24 Ordered By: Catrachito Higgins Admission Data Admit Date/Time: 10/23/24 06:17 Attending Provider: Trever Rahman Admit Provider: Trever Rahman Primary Care Provider: Tom Trivedi Other Providers: Trever Rahman Hospital Stay Data Consultations 10/23/24 05:55 ED Decision to Admit Stat Diagnostic Imagining Performed 10/23/24 03:00 CT angio chest PE protocol Stat CT head/brain wo con Stat CTA head w con [CT angio head w con] Stat CTA neck with con [CT angio neck with con] Stat 10/23/24 06:02 MRI Brain [MR brain wo con] Stat Discharge Instructions Given to Patient (Per Discharging Provider) You were seen for an episode of left arm numbness/tingling without strength loss. Numbness/tingling in the extremities can be caused by multiple things including compression, use/overuse, vitamin deficiency, and stroke/mini strokes. Imaging of your head/brain and the blood vessels in your head and neck did not show any evidence of stroke. There was some chronic age-related changes called small vessel disease; however there was no blockages or evidence of stroke. A mini stroke, or TIA, does not show up on imaging and cannot be ruled out as it leaves no permanent evidence and completely resolves. Since a mini stroke cannot be definitively excluded by any test, and since there is some chronic age-related small vessel disease noted on your imaging you have been started on a baby aspirin daily. Please continue to take aspirin 81 mg daily. Please continue to take rosuvastatin daily. You may continue to take your losartan and amlodipine as prescribed. A B12 level was pending as low B12 levels can lead to numbness/tingling and paresthesias. This was not available at time of discharge however should be followed up by your primary care physician at your next appointment. In the meantime please take an [id number] vitamin B12 supplement daily. If you develop any new or worsening symptoms including fever, chills, sweats, chest pain, chest pressure, difficulty breathing, uncontrolled nausea/vomiting, rash, wheezing, passing out or nearly passing out, bleeding, black/bloody bowel movements, or other new or concerning symptoms please call your primary care physician, or call 911 for re-evaluation in the emergency department if you are very concerned. Total Time Total Time Spent Total Time Spent (In Minutes): Time spend day of discharge 45 minutes including direct patient care, documentation, review of labs and images, and coordination of care. Coding Level of Care Code 15327 INP/OBS DISCH >30 MIN Diagnoses Stroke-like symptoms R29.90 Left chest pressure R07.89 Left upper extremity numbness R20.0 Hypertension I10
[2024-10-23] MEDS ORDERED: STROKE PATIENT DISCHARGE STA (16:15)
[2024-10-23] MEDS: LOSARTAN POTASSIUM 50 MG TAB PO SCH (16:32)
--- NOTE | 2024-10-23 18:08 | XCELERA ---
[id number]
[2024-10-23] MEDS ORDERED: ROSUVASTATIN CALCIUM 10 MG TAB PO SCH (21:00)
--- NOTE | 2024-10-23 22:14 | Electrocardiogram Report ---
Test Reason : Blood Pressure : */* mmHG Vent. Rate : 98 BPM Atrial Rate : 98 BPM P-R Int : 116 ms QRS Dur : 82 ms QT Int : 382 ms P-R-T Axes : 34 50 58 degrees QTcB Int : 487 ms Normal sinus rhythm Prolonged QT When compared with ECG of 18-Feb-2005 05:01, QT has lengthened Confirmed by Nam Isaac ([id number]) on 10/23/2024 10:14:11 PM Referred By: REFERRED SELF Confirmed By: Nam Isaac
[2024-10-24] MEDS ORDERED: ASPIRIN 81 MG ECTAB PO SCH (09:00)
--- NOTE | 2024-10-26 11:56 | Pharmacy Report ---
Pharmacist Stroke Counseling - Date of Service October 26, 2024 - Scope: Pharmacy has been consulted to provide medication discharge counseling for this patient admitted with transient ischemic attack as per the Pharmacist Discharge Counseling for Stroke Patients Protocol. - Medications on Discharge: Home Medications Medication Instructions Recorded Confirmed amlodipine 5 mg tablet 5 mg PO DAILY 10/23/24 10/23/24 losartan 100 mg tablet 100 mg PO DAILY 10/23/24 10/23/24 rosuvastatin 10 mg tablet 10 mg PO HS 10/23/24 10/23/24 New Rx's Medication Instructions Recorded aspirin 81 mg tablet,delayed 81 mg PO QAM #30 tabs 10/23/24 release - Action: The above medications, specifically ones for stroke treatment/prophylaxis, have been reviewed in detail with the patient and/or patient sales promotion representative(s) prior to discharge. This includes indication, common adverse reactions, drug interactions, and medication administration. Medication counseling has been employed using the teach-back method to ensure understanding. - Outcome: The patient and/or patient sales promotion representative(s) have demonstrated understanding of the medications. Thank you for allowing pharmacy to be involved in the care of this patient. Please call [phone] with any additional questions
== END 2024-10-23 17:04 | disposition home or self-care (01) ==
LOC: SUATTDRO → ED 01:53 → EDINP 01:53 → 2E 09:55